=== PATIENT | female | born 1945 | race African-American/Black ===

== ENCOUNTER 2017-09-18 12:34 | Emergency (ER) | payer OTHER ==
[~2017-09-18] VITALS: Ht 154.9 cm; Wt 61.7 kg
[~2017-09-18 12:34] MED LIST: ALLOPURINOL 10100 M1 PO; APIDRA SC; CARDURA PO; CHLORTHALIDONE PO; CINNAMON PO; HYDROCODONE-AP1 EAC6 PO; KLOR-CON 1010 MEQ PO; LANTUS SC; LIPITOR 20 MG T20 M1 PO; METFORMIN HCL500 MG PO; MOBIC7.5 MG PO; MULTI BETIC; NEURONTIN 300300 M1 PO; NEURONTIN600 MG PO; TENEX1 MG PO; TRIBENZOR 40-11 EAC1 PO; TUSNEL CAPSULE1 EACH PO; VITAMIN D400 UNI1 PO; ZANTAC 150MG T150 MG PO; ZPAK PO; ZYLOPRIM PO
[2017-09-18] MEDS ORDERED: VITAMIN D1000 UNI1 PO (13:08)
[2017-09-18] MEDS ORDERED: PROTONIX40 M1 PO (13:10)
[2017-09-18 13:37] LABS: URINE BILIRUBIN NEGATIVE (Negative); URINE BLOOD NEGATIVE (Negative); URINE CLARITY CLEAR; URINE COLOR YELLOW; URINE GLUCOSE-RANDOM* NEGATIVE (Negative); URINE KETONES NEGATIVE (Negative); URINE LEUKOCYTES-REFLEX NEGATIVE (Negative); URINE NITRITE-REFLEX NEGATIVE (Negative); URINE PROTEIN (DIPSTICK) NEGATIVE (Negative); URINE SPECIFIC GRAVITY <= 1.005 (1.005-1.035); URINE UROBILINOGEN 0.2 E.U./dl (0.2-1.0)
[2017-09-18] MEDS ORDERED: HYDROCODONE-AP1 EAC6 PO (14:33)
== END 2017-09-18 15:07 | disposition home or self-care (01) ==
LOC: ER 12:34
PROVIDERS: Nurse Practitioner Family
DX: M54.5 Low back pain (principal); E11.9 Type 2 diabetes mellitus without complications; E78.5 Hyperlipidemia, unspecified; I10 Essential (primary) hypertension; E78.00 Pure hypercholesterolemia, unspecified; K21.9 Gastro-esophageal reflux disease without esophagitis; M10.9 Gout, unspecified; Z90.710 Acquired absence of both cervix and uterus; Z90.5 Acquired absence of kidney; Z88.0 Allergy status to penicillin

== ENCOUNTER → 2018-01-28 | Outpatient (CLI) | payer OTHER ==
[~2018-01-28] MED LIST changes: +AZITHROMYCIN 2250 MG PO; +PROTONIX40 M1 PO; +TESSALON PERLE100 MG PO; +VENTOLIN HFA 1818 GM INH; +VITAMIN D1000 UNI1 PO
== END ==
LOC: RAD 01-09 03:50
DX: Z12.31 Encounter for screening mammogram for malignant neoplasm of breast (principal)

== ENCOUNTER → 2018-04-09 | Outpatient (CLI) | payer OTHER ==
[~2018-04-09] VITALS: Ht 154.9 cm; Wt 59.4 kg
[~2018-04-09] MED LIST changes: +CARAFATE 1 GM TA1 G1 PO; +IPRAT-ALBUT 0.5-3 ML INH; +OLMSRTN-AMLDPN1 EAC4 PO
--- NOTE | ~2018-04-09 | P ---
[facility] [address] [place] [address] PROCEDURE REPORT Name: JESSICA DURBIN V Room #: [facility] [id number] Admission: 04/09/18 Attend Phys: Mahamed Liao Discharge: Date of : 43 Report #: [id number] THIS REPORT FOR: //name// CC: Mahamed Winter MD DATE OF SERVICE: 04/09/2018 PROCEDURE PERFORMED: Upper endoscopy with biopsies. HISTORY OF PRESENT ILLNESS: The patient is a 73-year-old female with a history of intermittent abdominal pain, which is primarily periumbilical, but can be midepigastric, has been ongoing for several years. Apparently had a hernia repair, unsure if this is an umbilical hernia repair about 4 years ago. She is on Protonix and Carafate. She denies any dysphagia or odynophagia. Plan is for EGD and colonoscopy today. DESCRIPTION OF PROCEDURE: The risks and benefits of the procedure were explained to the patient, those risks including but not limited to bleeding, perforation, the risk of sedation. She understood these risks and gave informed consent. Sedation was given using propofol per anesthesia. Next, using a standard Olympus upper endoscope, the scope was placed in the patient's mouth and advanced under direct vision through the esophagus, stomach and into the second portion of the duodenum. The larynx was normal in appearance. The esophagus was normal throughout. The GE junction was normal. On entering the stomach, a small hiatal hernia was noted. There was a mild diffuse gastritis noted in the mid body and antrum of the stomach. Biopsies were obtained. No evidence of ulcerations or erosions. The pylorus was normal and patent. The duodenal bulb, first and second portion were all normal. Biopsies were obtained to rule out the possibility of celiac sprue. The scope was then withdrawn and procedure terminated. The patient tolerated the procedure well. IMPRESSION: 1. Small hiatal hernia. 2. Mild gastritis. 3. Otherwise, normal upper endoscopy. RECOMMENDATIONS: 1. Await biopsy results. 2. Continue PPI therapy. 3. We will discuss a trial of Levsin on a p.r.n. basis. 4. We will proceed with colonoscopy next today. [facility] [address] [place] [address] PROCEDURE REPORT Name: JESSICA DURBIN V Room #: REG [facility] Marybeth#: [id number] Admission: 04/09/18 Attend Phys: Mahamed Liao Discharge: Date of : 43 Report #: [id number] Thank you for allowing me to participate in her care. By: [id number] /nt
--- NOTE | ~2018-04-09 | P ---
[facility] [address] [place] [address] PROCEDURE REPORT Name: JESSICA DURBIN V Room #: [facility] [id number] Admission: 04/09/18 Attend Phys: Mahamed Liao Discharge: Date of : 43 Report #: [id number] THIS REPORT FOR: //name// CC: Mahamed Winter MD DATE OF SERVICE: 04/09/2018 PROCEDURE PERFORMED: Colonoscopy with polypectomy. HISTORY OF PRESENT ILLNESS: The patient is a 73-year-old female, presents today for routine screening colonoscopy. No family history of colon cancer. DESCRIPTION OF PROCEDURE: The risks and benefits of the procedure were explained to the patient. Those risks include, but not limited to, bleeding, perforation, the risk of sedation. She understood these risks and gave informed consent. Sedation was given using propofol per Anesthesia. Next, a digital rectal exam was initially performed which was normal. Next, using a standard Olympus colonoscope, the scope was placed in the patient's anus and advanced under direct vision to the cecum. The overall prep was excellent. Cecum and ileocecal valve were normal in appearance. Ascending colon was normal. The patient reports a history of loose stools at times, random biopsies were obtained to rule out the possibility of microscopic colitis. In the transverse colon, a 6 mm partially pedunculated polyp was noted. This was removed by snare cautery, otherwise normal. Descending colon was normal. Multiple diverticula were noted in the sigmoid colon, no evidence of inflammation. The rectal mucosa was normal. On retroflexion, small nonbleeding internal hemorrhoids were noted. The scope was then withdrawn and the procedure terminated. The patient tolerated the procedure well. IMPRESSION: 1. Small colonic polyp. 2. Sigmoid diverticulosis. 3. Internal hemorrhoids. 4. Otherwise, normal colonoscopy. RECOMMENDATIONS: 1. Await biopsy results. 2. Repeat colonoscopy in 5 years. [facility] [address] [place] [address] PROCEDURE REPORT Name: JESSICA DURBIN V Room #: [facility]#: [id number] Admission: 04/09/18 Attend Phys: Mahamed Liao Discharge: Date of : 43 Report #: [id number] Thank you for allowing me to participate in her care. By: [id number] Mahamed Bob MD /nt
--- NOTE | 2018-04-10 16:06 | PATH ---
[facility] [address] [address] PATHOLOGY RPT PROCEDURE Name: SHEILA DURBIN V Room #: REG [facility]anta[facility]ard.#: [id number] Admission: 04/09/18 Date of : 43 Discharge: Report #: [id number] Path Case #: [id number] [facility] Accession Number: [id number] . 01 Material submitted: . PART A: BX DOUDENUM R/O SPRUE PART B: BX GASTRITIS R/O H PYLORI PART C: POLYP AT TRANSVERSE COLON PART D: BX (RANDOM) COLON R/O MICROSCOPIC COLITIS . 01 Clinical history: . Pre-OP DX: Reflux, screening, abdominal pain Post-OP DX: Gastritis, colon polyp, diverticulosis, internal hemorrhoid . 02 Diagnosis: A. Small bowel mucosa, duodenum rule out sprue: - No diagnostic abnormalities present. - Negative for villous blunting or increase in intraepithelial lymphocytes. . B. Gastric mucosa, gastritis rule out H. pylori, endoscopic biopsy: - Mild chronic active gastritis associated with focal intestinal metaplasia. - Negative for atrophy or dysplasia. - Negative for Helicobacter pylori (properly controlled immunohistochemical stain performed). . C. Polyp, transverse colon, endoscopic biopsy: - Tubular adenoma. - Negative for high grade dysplasia. . D. Large intestinal mucosa, random colon rule out microscopic colitis, endoscopic biopsy: - Mild focal acute colitis. - Negative for microscopic colitis. - Negative for dysplasia or malignancy. LBQ/04/10/2018 . 02 Comment: Sections of the colonic mucosa designated "random colon" show focal surface epithelial acute inflammation and a moderately cellular lamina propria composed predominantly of lymphocytes and plasma cells and occasional eosinophils. Surface ulceration is not identified. There are no crypt abscesses, granulomas or viral inclusions. Given the description, the differential diagnosis includes focal active colitis of self-limited nature, a resolved/resolving episode of colitis, mild acute diverticulitis, and medication induced colitis as well as bowel [facility] [address] [place] [address] PATHOLOGY RPT PROCEDURE Name: SHEILA DURBIN V Room #: REG [facility]#: [id number] Admission: 04/09/18 Date of : 43 Discharge: Report #: [id number] Path Case #: [id number] preparation. Please correlate with clinical as well as endoscopic findings. (IUV/db; 04/10/2018) . 02 Electronically signed: . Brielle Salter MD, Pathologist NPI- [id number] . 01 Gross description: . A. Received in formalin labeled "Sheila Durbin, BX duodenum," are 3 segments of machuca soft tissue measuring 0.9 x 0.8 x 0.2 cm in aggregate dimensions and ranging from 0.3 to 0.4 cm in maximum dimension. The specimen is submitted entirely in cassette A1. . B. Received in formalin labeled "Sheila Durbin, BX gastritis, rule out H. pylori," are 4 segments of machuca soft tissue measuring 1.5 x 0.6 x 0.1 cm in aggregate dimensions and ranging from 0.2 to 0.6 cm in maximum dimension. The specimen is submitted entirely in cassette B1. . C. Received in formalin labeled "Sheila Durbin, polyp transverse colon," are 2 segments of machuca soft tissue measuring 0.6 x 0.2 x 0.2 cm in aggregate dimensions and measuring 0.3 cm each cm in maximum dimension. The specimen is submitted entirely in cassette C1. . D. Received in formalin labeled "Sheila Durbin, random BX colon, rule out microscopic colitis," are 4 segments of machuca soft tissue measuring 1.2 x 0.9 x 0.2 cm in aggregate dimensions and ranging from 0.3 to 0.4 cm in maximum dimension. The specimen is submitted entirely in cassette D1. (TSD; 04/09/2018) TOB/TOB . 02 Pathologist provided ICD-10: K29.50, D12.3, K52.9 . 02 CPT . 738951, 833421, 954197, [id number], [id number] Specimen Comment: A courtesy copy of this report has been sent to Specimen Comment: [phone], , . Specimen Comment: Report sent to DR HIGH, DR BETST / DR BONNER Performed at: [address], [place], [place] [id number] MD Timothy Lorenzana MD Phone: [phone] Performed at: [address] [id number] MD Brielle Salter MD Phone: [phone]
== END | disposition home or self-care (01) ==
LOC: GI 04-02 10:02
DX: Z12.11 Encounter for screening for malignant neoplasm of colon (principal); D12.3 Benign neoplasm of transverse colon; K57.30 Diverticulosis of large intestine without perforation or abscess without bleeding; K52.9 Noninfective gastroenteritis and colitis, unspecified; K29.50 Unspecified chronic gastritis without bleeding; K64.8 Other hemorrhoids; K21.9 Gastro-esophageal reflux disease without esophagitis; K44.9 Diaphragmatic hernia without obstruction or gangrene; I10 Essential (primary) hypertension; E11.9 Type 2 diabetes mellitus without complications; E78.00 Pure hypercholesterolemia, unspecified; Q60.0 Renal agenesis, unilateral; M10.9 Gout, unspecified; Z98.890 Other specified postprocedural states; Z90.710 Acquired absence of both cervix and uterus; Z88.0 Allergy status to penicillin; Z79.899 Other long term (current) drug therapy
CPT/HCPCS: 62110; 62900

== ENCOUNTER → 2018-06-30 | Outpatient (CLI) | payer OTHER ==
[2018-06-30 09:01] LABS: CREATININE 1.2 mg/dL (0.6-1.0)
== END ==
LOC: CAT 08:23
PROVIDERS: Specialist
DX: N26.1 Atrophy of kidney (terminal) (principal); N28.1 Cyst of kidney, acquired; K57.30 Diverticulosis of large intestine without perforation or abscess without bleeding

== ENCOUNTER → 2019-03-03 | Outpatient (CLI) | payer OTHER | LOC: RAD 01-28 03:00 | DX: Z12.31 Encounter for screening mammogram for malignant neoplasm of breast (principal) ==

== ENCOUNTER → 2020-04-12 | Outpatient (CLI) | payer OTHER, BC | LOC: RAD 12:31 | PROVIDERS: ATTEND Internal Medicine | DX: Z12.31 Encounter for screening mammogram for malignant neoplasm of breast (principal) ==

== ENCOUNTER → 2021-04-13 | Outpatient (CLI) | payer OTHER, BC | LOC: BC 12:45 | PROVIDERS: ATTEND Internal Medicine | DX: Z12.31 Encounter for screening mammogram for malignant neoplasm of breast (principal) ==